=== PATIENT | female | born 1995 | race Caucasian/White ===

== ENCOUNTER 2018-11-05 07:48 | Day surgery (SDC) | payer MEDICAID ==
[~2018-11-05 07:48] MED LIST: ROPIVACAINE 0.2% 80 MG, EPINEPHrine 0.2 MG, morphINE 10 MG in SYRINGE 0 ML IU ONE
[2018-11-05] MEDS ORDERED: BUPIVACAINE/EPI 0.5% 30 ML SDV ONE (08:02)
[2018-11-05] MEDS ORDERED: LR 1,000 ML IV SCH (08:25)
[2018-11-05] MEDS ORDERED: ACETAMINOPHEN 500 MG TAB PO ONE (08:25)
[2018-11-05] MEDS ORDERED: ceFAZolin 2 GM/DEXTROSE 100 ML IV ONE (08:25)
[2018-11-05] MEDS ORDERED: PREGABALIN 150 MG CAP PO ONE (08:25)
[2018-11-05] MEDS ORDERED: MIDAZOLAM 2 MG/2 ML VIAL IVP ONE (09:19)
[2018-11-05] MEDS ORDERED: SCOPOLAMINE HYDROBROMIDE 1 MG/3 DAYS PATCH TD ONE (09:19)
--- NOTE | 2018-11-05 09:55 | PDHPUP ---
History & Physical Update H&P update statement: This history and physical update is based on an assessment of the patient which was completed after admission or registration (within 24 hours), but prior to the surgery/procedure. H&P update: H&P reviewed & patient examined, no change in patient's condition since H&P completed
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
[2018-11-05] MEDS ORDERED: fentaNYL 100 MCG/2 ML INJ ONE ×2 (10:06→13:16)
[2018-11-05] MEDS ORDERED: PROPOFOL 200 MG/20 ML VIAL ONE (10:07)
[2018-11-05] MEDS ORDERED: ROCURONIUM 50 MG/5 ML VIAL ONE ×2 (10:08→10:57)
[2018-11-05] MEDS ORDERED: RANITIDINE 50 MG/2 ML VIAL ONE (10:09)
[2018-11-05] MEDS ORDERED: DEXAMETHASONE 4 MG/ML VIAL ONE ×2 (10:09→14:35)
[2018-11-05] MEDS ORDERED: METOCLOPRAMIDE 10 MG/2 ML VIAL ONE (10:11)
[2018-11-05] MEDS ORDERED: LIDOCAINE 2% 100 MG/5 ML SYR ONE (10:18)
--- NOTE | 2018-11-05 11:15 | POSTANESTH ---
Post Anesthetic Evaluation Cardiovascular Status: Normal, Stable Respiratory Status: Normal, Stable Level of Consciousness/Mental Status: Can Participate in Eval Pain Control: Adequate, Prn Tx Ordered Nausea/Vomiting Control: Adequate, Prn Tx Ordered Complications Possibly Related to Anesthesia: None Noted
[2018-11-05] MEDS ORDERED: ONDANSETRON 4 MG/2 ML VIAL ONE ×2 (11:42→13:16)
[2018-11-05] MEDS ORDERED: HYDROmorphONE/DILAUDID 2 MG/ML INJ ONE (11:44)
[2018-11-05] MEDS ORDERED: GLYCOPYRROLATE 0.2 MG/1 ML VIAL ONE (12:09)
[2018-11-05] MEDS ORDERED: NEOSTIGMINE METHYLSULFATE 5 MG/5 ML SYR ONE (12:09)
[2018-11-05] MEDS ORDERED: LR 500 ML IV PRN (12:21)
[2018-11-05] MEDS ORDERED: ONDANSETRON 4 MG/2 ML VIAL IVP PRN (12:21)
[2018-11-05] MEDS ORDERED: METOCLOPRAMIDE 10 MG/2 ML VIAL IVP PRN (12:21)
[2018-11-05] MEDS ORDERED: DIAZEPAM 5 MG/ML 1 ML SYR IVP PRN (12:21)
[2018-11-05] MEDS ORDERED: HYDROmorphONE/DILAUDID 2 MG/ML INJ IVP PRN (12:21)
[2018-11-05] MEDS ORDERED: HYDROCODONE/APAP 5/325 TAB PO PRN (12:21)
[2018-11-05] MEDS ORDERED: oxyCODONE IR 5 MG TAB PO PRN (12:21)
[2018-11-05] MEDS ORDERED: fentaNYL 100 MCG/2 ML INJ IVP PRN (12:21)
[2018-11-05] MEDS ORDERED: PROMETHAZINE HCL 25 MG/ML INJ IVP PRN (12:21)
[2018-11-05] MEDS ORDERED: MEPERIDINE 25 MG/0.5 ML AMP IVP PRN (12:21)
[2018-11-05] MEDS ORDERED: DEXAMETHASONE 4 MG/ML VIAL IVP PRN (12:21)
[2018-11-05] MEDS ORDERED: ALBUTEROL 3 ML DEYVIAL IH PRN (12:21)
[2018-11-05] MEDS ORDERED: NALOXONE HCL 0.4 MG/ML INJ IVP PRN (12:21)
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
[2018-11-05 15:33] VITALS: BP 105/68
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
== END 2018-11-05 16:31 | disposition home or self-care (01) ==
LOC: FSGY 07:48
PROVIDERS: ATTEND Orthopaedic Surgery
PROC: 0QQ64ZZ Repair Right Upper Femur, Percutaneous Endoscopic Approach (ICD-10-PCS; principal; 2018-11-05 09:30)
DX: M24.151 Other articular cartilage disorders, right hip (principal)
CPT/HCPCS: C1713; J0171; J0690; J1100; J1170; J2001; J2250; J2270; J2405; J2704; J2710; J2765; J2780; J2795; J3010